=== PATIENT | female | born 1960 | race Native Hawaiian/Other Pacific Islander ===

== ENCOUNTER 2021-12-28 08:45 | Outpatient (CLI) | payer OTHER | END 2021-12-28 19:23 | disposition home or self-care (01) | LOC: CT 08:45 | PROVIDERS: ATTEND Nurse Practitioner Family | DX: R31.9 Hematuria, unspecified (principal); Z87.442 Personal history of urinary calculi; R10.9 Unspecified abdominal pain; Z09 Encounter for follow-up examination after completed treatment for conditions other than malignant neoplasm ==

== ENCOUNTER 2022-04-18 10:08 | Outpatient (CLI) | payer OTHER | END 2022-04-18 19:14 | disposition home or self-care (01) | LOC: MAMMO 10:08 | PROVIDERS: ATTEND Nurse Practitioner Family | DX: Z12.31 Encounter for screening mammogram for malignant neoplasm of breast (principal); Z13.820 Encounter for screening for osteoporosis; N95.8 Other specified menopausal and perimenopausal disorders ==